=== PATIENT | female | born 1935 | race Caucasian/White ===

== ENCOUNTER → 2016-10-21 08:13 | Outpatient (CLI) | payer MEDICARE | LOC: D.MAMMO 08:13 | DX: Z12.31 Encounter for screening mammogram for malignant neoplasm of breast (principal) ==

== ENCOUNTER → 2017-10-28 05:16 | Outpatient (CLI) | payer MEDICARE | END | disposition home or self-care (01) | LOC: D.MAMMO 05:16 | DX: Z12.31 Encounter for screening mammogram for malignant neoplasm of breast (principal) ==

== ENCOUNTER → 2019-05-17 12:22 | Outpatient (CLI) | payer MEDICARE ==
--- NOTE | 2019-05-19 08:54 | EC ---
PATIENT:CHARITY SUH DATE OF SERVICE: 05/17/19 SEX: F MEDICAL RECORD: [id number] DATE OF : 39 LOCATION:D.CT AGE OF PATIENT: 83 ADMISSION DATE: 05/17/19 REFERRING PHYSICIAN: INTERPRETING PHYSICIAN: NANDO CONNOR MD ECHOCARDIOGRAM REPORT ECHO CHARGES 4 ECHO COMPLETE Date: 05/17/19 CLINICAL DIAGNOSIS: HEART MURMUR ECHOCARDIOGRAPHIC MEASUREMENTS (adult normal given) AC root (d.<3.7cm) 3.3 cm LV Septum d (<1.2 cm> 1.3 cm Valve Excursion 1.6 cm LV Septum (systole) 1.6 cm Left Atria (s.<4.0cm> 3.7 cm LVPW d(<1.2cm) 1.6 cm RV (d.<2.3cm) 3.7 cm LVPW (sytole) 1.9 cm LV diastole(<5.6CM) 4.1 cm MV E-F(>70mm/sec) cm LV systole 2.5 cm LVOT Diameter 1.6 cm MV exc.(>10mm) 1.1 cm Est.ejection fraction (50-75%) % DOPPLER: LVIT cm/sec A 91.0 cm/sec E 59.0 cm/sec LA cm/sec RVSP 28 mmHg LVOT 89 cm/sec AOP1/2T m/s Asc. Ao 120 cm/sec RVOT 57 cm/sec RA cm/sec PA 89 cm/sec AV Gradient Peak 5.72 mmHg AV Mean 3.15 mmHg AV Area 1.9 cm MV Gradient Peak 4.76 mmHg MV Mean 2.10 mmHg MV Area cm COMMENTS: Lease Purchase Truck Driver: 2 ASIM [employer] Terminal Computer Operator: 3 Dr. Colon TAPE# PACS Pericardial Effusion N DATE OF SERVICE: Adequate 2-D echo, Color-Flow and Spectral Doppler, and M-mode LVH is present. LV internal dimension is normal. Wall motion is normal. EF is greater than or equal to 55%. Aortic valve is tricuspid. No evidence of stenosis by Doppler interrogation. Left atrium is normal. Mitral valve shows no prolapse. Trace MR. Right-sided chambers are grossly normal. Trace TR. TRANSINT:[id number] Voice Confirmation ID: [id number] DOCUMENT ID: [id number] ECHOCARDIOGRAM REPORT [id number] CHARITY SUH,NANDO Field MD at 0854 CC: [id number] DICTATION DATE: 05/18/19 131 CROP RESEARCH SCIENTIST: 05/18/191912 DEP CLI 05/17/19 [facility] [address] [place] [address]
== END | disposition home or self-care (01) ==
LOC: D.CT 12:22 → D.HCCECHO 13:30
PROVIDERS: ATTEND Internal Medicine Interventional Cardiology
DX: I70.213 Atherosclerosis of native arteries of extremities with intermittent claudication, bilateral legs (principal); R60.0 Localized edema; R01.1 Cardiac murmur, unspecified

== ENCOUNTER 2019-06-07 11:29 | Outpatient (CLI) | payer MEDICARE ==
[~2019-06-07] VITALS: Ht 157.5 cm; Wt 54.5 kg
--- NOTE | ~2019-06-07 | HEMODYNAMI ---
PATIENT:CHARITY SUH MEDICAL RECORD: [id number] : 39 LOCATION:[facility] ADMISSION DATE: 06/07/19 Generatedon:06/07/201915:03 Patient name: CHARITY SUH Patient #: [id number] SSN: D OB: 1935 Date of study: 06/07/2019 Page: Of Hemodynamic Procedure Report Patient Data Patient Demographics Procedure consent was obtained First Name: CHARITY Gender: Female Last Name: ANGELI : 1935 [facility] Initial: J Age: 83 year(s) Patient #: [id number] Race: Unknown Additional ID: [id number] Contact details Address: [address] [place] [address] [address] State: [place] City: [place] Zip code: [address] Past Medical History Allergies Allergen Reaction Date Comments Reported Other allergy 06/07/2019 CORTISONE Admission Admission Data Admission Date: 06/07/2019 Admission Time: 11:29 Height (in.): 62 BSA: 1.54 (m2) Height (cm.): 157.48 BMI: 22.13 (kg/m2) Weight (lbs.): 121 Weight (kg.): 54.88 Lab Results Lab Result Date: 06/07/2019 Lab Result Time: 0:00 Biochemistry Name Units Result Min Max BUN mg/dl 23 --(----)-* 7 18 Creatinine mg/dl 0.6 --(*---)-- 0.6 1.3 eGFR ml/min 90 --(*---)-- 90 120 NONAFRICAN CBC Name Units Result Min Max Hematocrit % 41.6 -*(----)-- 42 54 Hemoglobin g/dl 14.7 --(-*--)-- 13.5 17.5 Procedure Procedure Types Cath Procedure Diagnostic Procedure Sedation Charges Moderate Sedation up to 45 minutes PCI Procedure Hemochron ACT Test Peripheral Cath Diagnostic Procedure Tank Farm Operator Peripheral Procedures AFRO (Diagnostic) Peripheral vascular Intervention Stent Stent-Fem/Popw/plasty Procedure Description Procedure Date Procedure Date: 06/07/2019 Procedure Start Time: 14:05 Procedure End Time: 15:01 Procedure Staff Name Function Homer Scott MD Performing Physician Татьяна Perez RN Nurse Carmelina Plummer RT Scrub Rosmery Perez RT Monitor Shannanmarsha Watts RT Monitor Procedure Data Cath Procedure Fluoroscopy Diagnostic fluoroscopy Total fluoroscopy Time: time: 11.7 min 11.7 min Diagnostic fluoroscopy Total fluoroscopy dose: 208 dose: 208 mGy mGy Contrast Material Contrast Material Type Amount (ml) Isovue 370 113 Entry Location Entry Primary Successful Side Size Upsize Upsize Entry Closure Succes sful Closure Location (Fr) 1 (Fr) 2 (Fr) Remarks Device Remarks Femoral Right 5 Fr 6 Fr Exoseal artery Long Estimated blood loss: 10 ml Diagnostic catheters Device Type Used For End Catheter Placement DIAGNOSTIC UF 5Fr Procedure catheter ([id number]) Procedure Complications No complications Procedure Medications Medication Administration Route Dosage Oxygen etCO2 Nasal cannula 2 l/min Lidocaine 2% added to field 20 Heparin Flush Bag added to field 2 bags (1000units/500ml NS) 0.9% NaCl I.V. 100 ml/hr Versed I.V. 2 mg Fentanyl I.V. 50 mcg Versed I.V. 1 mg Fentanyl I.V. 50 mcg Heparin Bolus I.V. 5000 units Versed I.V. 1 mg Fentanyl I.V. 100 mcg Versed I.V. 2 mg Fentanyl I.V. 100 mcg Heparin Bolus I.V. 2000 units Hemodynamics Rest BSA: 1.54 (m2) HGB: 14.7 (g/dl) O2 Consumption: Estimated: 136.35 (ml/min) O2 Co nsumption indexed: Estimated:88.54 (ml/min/m) Heart Rate: 67 (bpm) Snapshots Pre Cath Intra NCS Post Cath Vital Signs Time Heart Resp SPO2 etCO2 NIBP (mmHg) Rhythm Pain Sedation Rate (ipm) (%) (mmHg) Status Level (bpm) 13:50:06 73 18 97 0 170/94(123) NSR 0 (11) 10(A) , No pain 13:54:28 68 14 97 27.7 145/79(107) NSR 0 (11) 10(A) , No pain 13:58:44 68 18 96 0 134/74(117) NSR 0 (11) 10(A) , No pain 14:03:00 72 15 93 0 131/68(89) NSR 0 (11) 10(A) , No pain 14:07:16 72 19 100 24.7 138/66(111) NSR 0 (11) 10(A) , No pain 14:11:32 78 17 94 0 125/63(102) NSR 0 (11) 9(A) , No pain 14:15:44 78 17 97 0 127/66(97) NSR 0 (11) 9(A) , No pain 14:19:58 80 18 98 0 130/65(85) NSR 0 (11) 9(A) , No pain 14:24:14 79 19 96 0 126/64(106) NSR 0 (11) 9(A) , No pain 14:28:24 81 20 100 41.9 135/78(93) NSR 0 (11) 10(A) , No pain 14:32:40 78 17 100 12.7 128/69(91) NSR 0 (11) 10(A) , No pain 14:36:52 77 11 100 29.9 123/69(94) NSR 0 (11) 10(A) , No pain 14:41:02 78 17 100 0 132/69(90) NSR 0 (11) 10(A) , No pain 14:45:18 77 15 100 0 150/66(95) NSR 0 (11) 10(A) , No pain 14:49:38 77 16 98 0 123/61(82) NSR 0 (11) 10(A) , No pain 14:53:48 81 20 99 24.7 136/69(113) NSR 0 (11) 10(A) , No pain 14:58:00 82 14 99 44.2 138/81(105) NSR 0 (11) 10(A) , No pain 15:02:08 83 25 93 9.7 153/92(111) NSR 0 (11) 10(A) , No pain Medications Time Medication Route Dose Verified Delivered Reason Notes Effectiveness by by 13:50:31 Oxygen etCO2 2 Homer Vaz used for Nasal l/min St Tay Perez mold sander cannula 13:56:41 Lidocaine 2% added 20ml Homer Coronel for local to vial [facility] anesthetic field MD LUIS 13:56:48 Heparin Flush added 2 Homer Coronel used for Bag to bags [facility] procedure (1000units/500ml field MD LUIS NS) 13:57:00 0.9% NaCl I.V. 100 Homer Vaz Per physician ml/hr St Tay Perez RN, MD 14:02:47 Versed I.V. 2 mg Homer Buffie for sedation St Tay Perez RN, MD 14:02:53 Fentanyl I.V. 50 Homer Buffie for sedation mcg St Tay Perez RN, MD 14:07:45 Versed I.V. 1 mg Homer Buffie for sedation St Tay Perez RN, MD 14:07:49 Fentanyl I.V. 50 Homer Buffie for sedation [facility] Perez RN, MD 14:10:36 Heparin Bolus I.V. 5000 Homer Buffie for verif ied units St Tay Perez RN anticoagulation with dr MD pantoja 14:15:20 Versed I.V. 2 mg Homer Buffie for sedation St Tay Perez RN, MD 14:29:59 Versed I.V. 1 mg Homer Buffie for sedation St Tay Perez RN, MD 14:30:02 Fentanyl I.V. 100 Homer Buffie for sedation peter Correa RN, MD 14:44:22 Fentanyl I.V. 100 Homer Buffie for sedation [facility] Tay Perez RN, MD 14:46:32 Heparin Bolus I.V. 2000 Homer Buffie for verif ied units St Tay Perez RN anticoagulation with dr MD pantoja Procedure Log Time Note 18:40:47 Sheath removed intact; hemostasis achieved with Exoseal to the Right Femoral artery. 13:29:47 Informed consent obtained and on chart 13:29:54 Procedure Status Elective Heart Cath (OP). 13:29:55 Time tracking: Regular hours (M-F 7:00 - 5:00) 13:29:58 Plan of Care:Hemodynamics will remain stable., Cardiac rhythm will remain stable., Comfort level will be maintained., Respiratory function will remain adequate., Patient/ family verbilizes understanding of procedure., Procedure tolerated without complication., Recovers from procedure without complications.. 13:30:12 H&P Date Dictated: 05/31/2019 Within 30 days and on chart., H&P Addendum completed by physician on day of procedure. (MUST COMPLETE FOR ALL OUTPATIENTS). 13:30:53 Patient allergic to Other allergyCORTISONE 13:31:52 Patient Weight : 121 lbs 13:31:56 Patient Height : 62 inches 13:32:37 Татьяна Perez RN sent for patient. Start room use. 13:37:00 Lab Result : BUN 23 mg/dl 13:37:00 Lab Result : eGFR NONAFRICAN 90 ml/min 13:37:00 Lab Result : Creatinine 0.6 mg/dl 13:37:00 Lab Result : Hemoglobin 14.7 g/dl 13:37:00 Lab Result : Hematocrit 41.6 % 13:43:10 Patient received from Pre/Post Procedure Room to CCL 1 Alert and oriented. Tansferred to table in Supine position. 13:43:12 Warm blankets applied, and andreea hugger turned on for patient comfort. 13:43:13 Correct patient and procedure confirmed by team. 13:43:15 ECG and BP/O2 sat monitors applied to patient. 13:43:19 Pre-procedure instructions explained to patient. 13:43:20 Pre-op teaching completed and patient verbalized understanding. 13:43:22 Family in waiting room. 13:43:24 Patient NPO since Midnight. 13:43:38 Stress Test: no; N/A ? 13:47:50 Is the patient allergic to Iodine/contrast media? No. 13:47:53 Is patient on blood thinner?No 13:47:55 Patient diabetic? No. 13:47:57 If diabetic: On Metformin? N/A 13:48:00 Patient not . Patient is over age 55. 13:48:01 ----Pre-sedation anethsthesia assessment.---- 13:48:05 Previous problem with sedation/anesthesia? No ? 13:48:06 Snore? No 13:48:07 Sleep apnea? No 13:48:09 Deviated septum? No 13:48:10 Opens mouth fully? Yes 13:48:11 Sticks out tongue? Yes 13:48:13 Airway obstruction? No ? 13:48:15 Dentures? No ? 13:48:19 Pre procedure: right dorsailis pedis pulse 1+ Palpable, but thready & weak; easily obliterated 13:48:28 Patient pain scale 1/10 left leg pain. 13:48:41 Bilateral groins area was prepped with chlora-prep and draped in sterile fashion 13:48:42 Alarms reviewed by R. N. 13:48:43 Sharps counted by scrub and verified by R.N. 13:48:51 Lab results completed and on chart. 13:48:58 Vital chart was started 13:49:01 Full Disclosure recording started 13:49:29 IV patent on arrival in left antecubital with 0.9% NaCl at O. 13:50:31 Oxygen 2 l/min etCO2 Nasal cannula was administered by Татьяна Perez RN; used for procedure; Verbal order read back and verified. 13:56:41 Lidocaine 2% 20ml vial added to field was administered by Homer Scott MD; for local anesthetic; Verbal order read back and verified. 13:56:48 Heparin Flush Bag (1000units/500ml NS) 2 bags added to field was administered by Homer Scott MD; used for procedure; Verbal order read back and verified. 13:57:00 0.9% NaCl 100 ml/hr I.V. was administered by Татьяна Perez RN; Per physician; Verbal order read back and verified. 13:57:09 Baseline sample Acquired. 13:57:13 Rhythm: sinus rhythm 13:59:04 Use device set Femoral Dx 13:59:06 ACIST Syringe (46676) opened to sterile field. 13:59:07 Bag Decanter (2002S) opened to sterile field. 13:59:08 Medline Cath Pack ([id number]) opened to sterile field. 13:59:10 ACIST Hand Control (67036) opened to sterile field. 13:59:10 ACIST Manifold (07816) opened to sterile field. 13:59:17 SHEATH 5FR Peerless ([id number]) opened to sterile field. 13:59:18 EMERALD Guide Wire (614-462) opened to sterile field. 14:02:07 --------ALL STOP TIME OUT------ 14:02:08 Final Timeout: patient, procedure, and site verified with staff and physician. All members of the team are in agreement. 14:02:10 Bilateral groins site verified by team. 14:02:14 Fire Safety Assessment: A--An alcohol-based skin anteseptic being used preoperatively., C--Open oxygen or nitrous oxide is being used., D--An ESU, laser, or fiber-optic light is being used. 14:02:17 Physical assessment completed. ASA score P 2 - A patient with mild systemic disease as per Homer Scott MD. 14:02:24 1) 90+ Normal kidney functon but urine findings or structural abnormalities or genetic trait point to kidney disease. 14:02:28 Maximum allowable contrast dose (3.7 X eGFR X 0.75)250 ml. 14:02:32 Sedation plan: IV Moderate Sedation Medication:Versed, Fentanyl 14:02:47 Versed 2 mg I.V. was administered by Татьяна Perez RN; for sedation; Verbal order read back and verified. 14:02:53 Fentanyl 50 mcg I.V. was administered by Татьяна Perez RN; for sedation; Verbal order read back and verified. 14:04:34 Procedure started. 14:05:14 Local anesthetic to right femoral artery with Lidocaine 2% by Homer Scott MD.INITIAL ACCESS ONLY 14:06:29 A 5 Fr sheath was inserted into the Right Femoral artery 14:06:45 A DIAGNOSTIC UF 5Fr catheter ([id number]) was advanced over the wire and used for Procedure. 14:07:45 Versed 1 mg I.V. was administered by Татьяна Perez RN; for sedation; Verbal order read back and verified. 14:07:47 Abdominal angiogram w/ runoff was performed. 14:07:49 Fentanyl 50 mcg I.V. was administered by Татьяна Perez RN; for sedation; Verbal order read back and verified. 14:09:56 Proceeding to intervention. 14:10:36 Heparin Bolus 5000 units I.V. was administered by Татьяна Perez RN; for anticoagulation; verified with dr pantoja Verbal order read back and verified. 14:11:36 Catheter exchanged over wire. 14:11:43 SHEATH 6FR Destination (RSR01) opened to sterile field. 14:12:00 Sheath upsized to a 6 Fr Long. 14:12:28 TORQUE DEVICE PLASTIC .038 ( TD01) opened to sterile field. 14:15:20 Versed 2 mg I.V. was administered by Татьяна Perez RN; for sedation; Verbal order read back and verified. 14:16:58 6 FR DESTINATION ADVANCED. 14:19:25 GLIDE WIRE Super Stiff Angled 260cm ([id number]) opened to sterile field. 14:19:36 WIRE ADVANCED. 14:24:17 INFLATOR Merit Acostak (EQ5427) opened to sterile field. 14:25:57 Wire advanced across lesion. 14:28:09 Inflate balloon Inflation number: 1 A POWERFLEX PRO 5.0 X 100 X 135 balloon ([id number]) was prepped and advanced across the Mid Superficial Femoral, Left , then inflated to 10 BRYANT for 0:00 (min:sec) . 14:29:01 Inflation number: 2 The POWERFLEX PRO 5.0 X 100 X 135 balloon ([id number]) was reinflated across the Mid Superficial Femoral, Left , to 10 BRYANT for 0:00 (min:sec) . 14:29:45 Inflation number: 3 The POWERFLEX PRO 5.0 X 100 X 135 balloon ([id number]) was reinflated across the Mid Superficial Femoral, Left , to 10 BRYANT for 0:00 (min:sec) . 14:29:59 Versed 1 mg I.V. was administered by Татьяна Perez RN; for sedation; Verbal order read back and verified. 14:30:02 Fentanyl 100 mcg I.V. was administered by Татьяна Perez RN; for sedation; Verbal order read back and verified. 14:30:44 Balloon removed over the wire. 14:39:49 SMART Flex 5 X 120 X 120 stent ([id number]) was deployed across Mid Superficial Femoral, Left . 14:41:00 Stent catheter was removed intact over wire. 14:43:26 SMART Flex 5 X 100 X 120 stent ([id number]) was deployed across Mid Superficial Femoral, Left . 14:44:22 Fentanyl 100 mcg I.V. was administered by Татьяна Perez RN; for sedation; Verbal order read back and verified. 14:44:38 Stent catheter was removed intact over wire. 14:45:52 Balloon re-inserted over wire. 14:46:20 Inflation number: 4 The POWERFLEX PRO 5.0 X 100 X 135 balloon ([id number]) was reinflated across the Mid Superficial Femoral, Left , to 12 BRYANT for 0:00 (min:sec) . 14:46:32 Heparin Bolus 2000 units I.V. was administered by Татьяна Perez RN; for anticoagulation; verified with dr pantoja Verbal order read back and verified. 14:47:03 Inflation number: 5 The POWERFLEX PRO 5.0 X 100 X 135 balloon ([id number]) was reinflated across the Mid Superficial Femoral, Left , to 12 BRYANT for 0:00 (min:sec) . 14:47:35 Inflation number: 6 The POWERFLEX PRO 5.0 X 100 X 135 balloon ([id number]) was reinflated across the Mid Superficial Femoral, Left , to 12 BRYANT for 0:00 (min:sec) . 14:48:17 Balloon removed over the wire. 14:48:38 Wire removed. 14:48:38 Guide catheter removed. 14:49:02 EXOSEAL 6Fr (EX600) opened to sterile field. 14:49:45 SHEATH 6FR Peerless ([id number]) opened to sterile field. 14:51:04 Procedure ended.(Physican Out) 14:51:16 Fluoroscopy time 11.70 minutes. 14:51:20 Fluoroscopy dose: 208 mGy 14:51:20 Flurop Dose total: 208 14:51:26 Dose Area Product 37331 mGy/cm. 14:51:31 Contrast amount:Isovue 370 113ml. 14:51:34 Maximum allowable dose exceeded? No. 14:51:35 Sharps counted by scrub and verified by R.N. 14:51:42 Post-op/insertion site Right Femoral artery dressed using a 4 x 4 and Tegaderm. 14:51:50 Post right femoral artery:stable, soft, clean and dry 14:51:51 Post Procedure Pulses reassessed and unchanged 14:51:56 Post procedure: right dorsailis pedis pulse 1+ Palpable, but thready & weak; easily obliterated. 14:52:00 Post-procedure physical assessment completed. ASA score P 2 - A patient with mild systemic disease as per Homer Scott MD. 14:52:03 Post procedure rhythm: unchanged. 14:52:07 Estimated blood loss: 10 ml 14:52:09 Post procedure instruction explained to patient.Patient verbalizes understanding. 14:52:10 Patient needs reinforcement of post procedure teaching. 14:55:12 Procedure type changed to Cath procedure, Diagnostic procedure, Sedation Charges, Moderate Sedation up to 45 minutes, PCI procedure, Hemochron ACT Test, Peripheral Cath Diagnostic Procedure, Tank Farm Operator Peripheral Procedures, AFRO (Diagnostic), Peripheral vascular Intervention, Stent, Stent-Fem/Popw/plasty 14:55:19 ACT drawn and resulted at 371 seconds. (normal therapeutic range 180-240 seconds). 14:55:31 Procedure Complication : No complications 14:57:57 Procedure and supply charges have been captured, reviewed, submitted and are correct. 14:58:02 Operative report dictated upon procedure completion. 14:58:03 Operative report dictated upon procedure completion. 14:58:04 See physician's report for complete and final results. 14:58:06 Report given to Pre/Post Procedure Room. 14:58:10 Patient transfered to Pre/Post Procedure Room with Stretcher. 14:58:34 AFRO Findings: PVD: DIRECTOR STUDENT UNION performed (see procedure notes) 15:01:53 Vital chart was stopped 15::58 Procedure ended. 15::58 Full Disclosure recording stopped 15:02:39 ACC-PCI Only Patient was given prescriptions, or instructed by Homer Scott MD to start/continue the following medications upon discharge: Plavix 15:02:41 End room use (Document Last) 15:03:11 End room use (Document Last) 15:03:27 End room use (Document Last) Intervention Summary Intervention Notes Time ActionType Lesion and Equipment Action# Pressure Duration Attributes Used 14:28:09 Inflate Mid POWERFLEX 1 10 00:00 balloon Superficial PRO 5.0 X Femoral, 100 X 135 Left balloon ([id number]) 14:29:01 Reinflate Mid POWERFLEX 2 10 00:00 balloon Superficial PRO 5.0 X Femoral, 100 X 135 Left balloon ([id number]) 14:29:45 Reinflate Mid POWERFLEX 3 10 00:00 balloon Superficial PRO 5.0 X Femoral, 100 X 135 Left balloon ([id number]) 14:39:49 Deploy self Mid SMART Flex 1 expanding Superficial 5 X 120 X stent Femoral, 120 stent Left ([id number]) 14:43:26 Deploy self Mid SMART Flex 1 expanding Superficial 5 X 100 X stent Femoral, 120 stent Left ([id number]) 14:46:20 Reinflate Mid POWERFLEX 4 12 00:00 balloon Superficial PRO 5.0 X Femoral, 100 X 135 Left balloon ([id number]) 14:47:03 Reinflate Mid POWERFLEX 5 12 00:00 balloon Superficial PRO 5.0 X Femoral, 100 X 135 Left balloon ([id number]) 14:47:35 Reinflate Mid POWERFLEX 6 12 00:00 balloon Superficial PRO 5.0 X Femoral, 100 X 135 Left balloon ([id number]) Device Usage Item Name Manufacture Quantity Catalog Hospital Part Current Minimal L ot# / Number Charge Number Stock Stock Serial# Code ACIST Acist 1 01750 817685 795688 831330 20 Syringe Medical (13474) Systems Inc Bag Microtek 1 2001S 219124 23726 170854 5 Decanter Medical Inc. () Medline Medline 1 [id number] 969171 88352 748561 5 Cath Pack ([id number]) ACIST Hand Acist 1 42447 094403 156090 975885 5 Control Medical (02811) Systems Inc ACIST Acist 1 98803 680558 640100 052641 5 Manifold Medical (32277) Systems Inc SHEATH 5FR Terumo 1 [id number] 609068 129637 574237 5 Peerless (UAZ418) EMERALD Cardinal 1 502-455 992242 305968 745816 5 Guide Wire Health (502-455) DIAGNOSTIC Cardinal 1 [id number] 133499 517600 999202 10 UF 5Fr Health catheter ([id number]) SHEATH 6FR Terumo 1 RSR01 727895 97151 270365 5 Destination (RSR01) TORQUE [place] 1 TD01 000618 290959 730383 5 DEVICE Scientific PLASTIC .038 ( TD01) GLIDE WIRE Terumo 1 YC9595 525989 919700 192374 5 Super Stiff Angled 260cm (HX4170) INFLATOR Merit 1 YL7868 166500 646806 417458 15 [facility] Medical BasixCompak (KE4877) POWERFLEX Cardinal 1 [id number] 493693 311341 453084 5 PRO 5.0 X Health 100 X 135 balloon ([id number]) SMART Flex Cardinal 1 [id number] 465892 042077 165218 0 5 X 120 X Health 120 stent ([id number]) SMART Flex Cardinal 1 [id number] 477896 776744 564756 0 5 X 100 X Health 120 stent ([id number]) EXOSEAL 6Fr Cardinal 1 EX600 873696 513962 573525 10 (EX600) Health SHEATH 6FR Terumo 1 IFR984 781977 925747 702892 40 Peerless ([id number]) Signature Audit [place] Stage Time Signature Unsigned Intra-Procedure 06/07/2019 Rosmery Perez 3:03:11 PM RT(R) Intra-Procedure 06/07/2019 Татьяна Perez RN 3:03:27 PM Intra-Procedure 06/07/2019 Homer Gastelum 3:03:46 PM Tay LUIS [facility] [address] [place] [address]
[2019-06-07] MEDS ORDERED: XANAX0.25 MG PO (12:23)
[2019-06-07] MEDS ORDERED: SOMA350 MG PO (12:24)
[2019-06-07] MEDS ORDERED: CONJUGATED ESTROGENS 0.625 MG VG (12:26)
[2019-06-07] MEDS ORDERED: CYCLOBENZAPRINE10 MG PO (12:27)
[2019-06-07] MEDS ORDERED: HYDROCHLOROTH12.5 M1 PO (12:27)
[2019-06-07] MEDS ORDERED: COZAAR100 MG PO (12:27)
[2019-06-07] MEDS ORDERED: MYRBETRIQ50 MG PO (12:28)
[2019-06-07] MEDS ORDERED: TOPROL XL100 MG PO (12:28)
[2019-06-07] MEDS ORDERED: NEXIUM40 MG PO (12:30)
[2019-06-07] MEDS ORDERED: KLOR-CON 1010 MEQ PO (12:30)
[2019-06-07] MEDS ORDERED: OXYCODONE HCL10 MG PO (12:30)
[2019-06-07] MEDS ORDERED: AMBIEN10 MG PO (12:31)
[2019-06-07] MEDS ORDERED: REQUIP0.25 MG PO (12:31)
[2019-06-07] MEDS ORDERED: PRAVACHOL20 MG PO (12:31)
[2019-06-07] MEDS ORDERED: TRAZODONE HCL150 MG PO (12:32)
[2019-06-07 12:53] LABS: BASOPHILS 0.3 % (0-2); EOSINOPHILS 1.4 % (0-7); HEMATOCRIT 41.6 % (36.0-48.0); HEMOGLOBIN 14.7 g/dL (12-16); IMMATURE GRANULOCYTES 0.5 % (0-5); LYMPHOCYTES 21.8 % (15-50); MCH 33.6 pg (26.0-34.0); MCHC 35.3 g/dL (31.0-37.0); MCV 95.2 fL (80.0-100.0); MEAN PLATELET VOLUME 9.3 fL (7.4-10.4); MONOCYTES 9.9 % (2-11); NEUTROPHILS 66.1 % (40-80); PLATELET COUNT 209 10x3/uL (130-400); RBC 4.37 10x6/uL (4.00-5.40); WBC 6.6 10x3/uL (4.8-10.8)
[2019-06-07 12:57] VITALS: BP 139/79; Ht 157.5 cm; Wt 54.5 kg
[2019-06-07 13:04] LABS: CALC OSMOLALITY 288 mosm/kg (275-300); CALCIUM 8.8 mg/dL (8.5-10.1); CARBON DIOXIDE 31.7 mmol/L (21.0-32.0); CHLORIDE - SERUM 103 mmol/L (98-107); CREATININE - SERUM 0.6 mg/dL (0.6-1.3); GLUCOSE 93 mg/dL (74-106); POTASSIUM - SERUM 3.1 mmol/L (3.5-5.1); SODIUM 143 mmol/L (136-145); UREA NITROGEN 23 mg/dL (7-18); eGFR NON AFRICAN AMERICAN > 90 mL/min (90-120)
--- NOTE | 2019-06-07 15:16 | NUR ---
PT ARRIVED BY STRETCHER. PLACED ON MONITORS. ASSESSMENT COMPLETED. VSS. CALL LIGHT WITHIN REACH. NO FAMILY AT BEDSIDE AT THIS TIME.
[2019-06-07] MEDS ORDERED: BAYER CHEWABLE81 MG PO (15:32)
[2019-06-07] MEDS ORDERED: PLAVIX75 MG PO (15:32)
--- NOTE | 2019-06-07 15:35 | NUR ---
PT SET UP WITH DRINK AND SANDWICH. ABLE TO FEED SELF. DENIES NAUSEA. AWAKE AND ALERT AT THIS TIME. PT IN [place] POSITION BUT BED IS IN REVERSE [place] POSITION AT THIS TIME. VSS. CALL LIGHT WITHIN REACH. PT WATCHING TELEVISION.
--- NOTE | 2019-06-07 16:00 | NUR ---
PT RESTING COMFORTABLY. VSS. RIGHT GROIN DRESSING C/D/I. NO S/S OF HEMATOMA NOTED. CALL LIGHT WITHIN REACH. DENIES NAUSEA AT THIS TIME.
--- NOTE | 2019-06-07 16:30 | NUR ---
RIGHT GROIN DRESSING C/D/I. NO S/S OF HEMATOMA NOTED. CALL LIGHT WITHIN REACH. VSS.
--- NOTE | 2019-06-07 17:00 | NUR ---
RIGHT GROIN DRESSING C/D/I. NO S/S OF HEMATOMA NOTED. CALL LIGHT WITHIN REACH. VSS AT THIS TIME. PT DENIES NAUSEA/PAIN.
--- NOTE | 2019-06-07 17:30 | NUR ---
RIGHT GROIN DRESSING C/D/I. NO S/S OF HEMATOMA NOTED. PT ON BEDPAN. VOIDED APPROX 150cc OF YELLOW URINE. PT REFUSED TO LAY FLAT. SHE STATES "I CAN'T PEE LAYING FLAT!!" AND PROCEEDED TO PROP HERSELF UP ON HER ELBOWS TO VOID. I INSTRUCTED HER ON THE NEED TO CONTINUE TO LAY FLAT, BUT SHE REFUSED. SOURAV-CARE GIVEN AND RIGHT GROIN CHECKED AFTER PT HAD SAT UP SLIGHTLY. DRESSING WAS C/D/I. NO S/S OF HEMATOMA NOTED. SHE STATES THAT HER BACK HAS STARTED HURTING AND REPORTS ITS HER CHRONIC PAIN AND GIVES IT A 8/10 ON PAIN SCALE. WILL GIVE PAIN MEDICATION ORDERED AND CONTINUE TO MONITOR.
--- NOTE | 2019-06-07 18:00 | NUR ---
RIGHT GROIN DRESSING C/D/I. NO S/S OF HEMATOMA NOTED. RIGHT PEDAL PULSES WITH DOPPLER. BILATERAL LOWER EXT WARM TO TOUCH. PINK IN COLOR WITH CAP REFILL <3 SECS. PT'S HEAD OF BED INC TO 30 DEGREES. TOLERATED WELL. REPORTS HER BACK PAIN HAS IMPROVED SLIGHTLY AND RATES IT A 6/10 AT THIS TIME. CALL LIGHT WITHIN REACH. VSS. NO NEEDS AT THIS TIME.
--- NOTE | 2019-06-07 18:30 | NUR ---
RIGHT GROIN DRESSING C/D/I. NO S/S OF HEMATOMA NOTED. PIV D/C'D WITH CATH TIP INTACT. TOLERATED WELL. PT UP AND DRESSED WITH MINIMAL ASSISTANCE.
--- NOTE | 2019-06-07 18:45 | NUR ---
DISCUSSED DISCHARGE INSTRUCTIONS WITH PT. SHE VOICED UNDERSTANDING. PT AMBULATING IN ROOM WITH WALKER. STEADY GAIT NOTED. RIGHT GROIN DRESSING C/D/I. NO S/S OF HEMATOMA NOTED.
--- NOTE | 2019-06-07 19:00 | NUR ---
PT'S RIDE ARRIVED. PT TAKEN OUT TO VEHICLE BY WHEELCHAIR. NO S/S OF DISTRESS NOTED. ALL BELONGINGS AND PAPERWORK IN HAND. THIS INCLUDES PHONE, GLASSES, PURSE, CLOTHING, AND DISCHARGE PAPEROWRK.
--- NOTE | 2019-06-09 09:09 | OP ---
PATIENT NAME: CHARITY SUH MEDICAL RECORD: [id number] LOCATION:D.[facility] ADMISSION DATE: SURGEON: NANDO CONNOR MD DATE OF OPERATION: 06/07/2019 PROCEDURE: AFRO. PTCA stent to the left SFA. CATHETERS USED: A 5-St Lucian sheath, VALENTINA catheter. The procedure was well tolerated. We proceeded immediately to HOSPICE MUSIC THERAPY stenting of the left SFA. FINDINGS: The VALENTINA catheter was placed at the level of the renal arteries and AFRO was performed. This showed a markedly tortuous aorta, but no evidence of dissection, no evidence of aneurysm. Nonselective injection of the renal artery showed no significant stenosis. Left iliac system is very tortuous. The superficial system common and deep free of disease. The left superficial femoral shows multiple areas beginning at the mid portion down right before the trifurcation greater than 90%. Right iliac system is again a very tortuous without significant stenosis. The right femoral system including deep and common are free of disease. Right superficial again has several areas of 80% stenosis right before the trifurcation. IMPRESSION: Left is the most symptomatic, plan of intervention momentarily. Intervention of the right at later date. DESCRIPTION OF PROCEDURE: 1. After a long 6-St Lucian sheath was placed around the horn into the iliac system. The Glidewire placed down through all the lesions down this portion of vessel. Pre-deployment balloon used was a 5-0, 100 balloon. 2. SMART stents were placed in the following fashion distally, a 5 x 120 SMART stent was placed. 3. A 100 x 5 SMART stent was placed. These were then postdilated with the previous balloon up to 14 atmospheres. This shows excellent resolution of multiple 90% stenosis. No significant residual. Good three-vessel runoff is noted with good pulses distally. Sheath closed with ExoSeal device. PLAN: Intervention of the right at a later date. TRANSINT:[id number] Voice Confirmation ID: [id number] DOCUMENT ID: [id number] NANDO CONNOR MD at 0909 CC: [id number] DICTATION DATE: 06/07/19 1504 CEMETERY LABORER: 06/07/19 1816 DEP CLI 06/07/19 [facility] [address] [place] [address]
== END 2019-06-07 19:00 | disposition home or self-care (01) ==
LOC: D.CATH 11:29
PROVIDERS: ATTEND Internal Medicine Interventional Cardiology
DX: I73.9 Peripheral vascular disease, unspecified (principal); I10 Essential (primary) hypertension; E78.5 Hyperlipidemia, unspecified

== ENCOUNTER → 2019-06-18 08:32 | Outpatient (CLI) | payer MEDICARE ==
[2019-06-07 12:57] VITALS: BMI 22.0
[~2019-06-18 08:32] MED LIST: AMBIEN10 MG PO; BAYER CHEWABLE81 MG PO; CONJUGATED ESTROGENS 0.625 MG VG; COZAAR100 MG PO; CYCLOBENZAPRINE10 MG PO; HYDROCHLOROTH12.5 M1 PO; KLOR-CON 1010 MEQ PO; MYRBETRIQ50 MG PO; NEXIUM40 MG PO; OXYCODONE HCL10 MG PO; PLAVIX75 MG PO; PRAVACHOL20 MG PO; REQUIP0.25 MG PO; SOMA350 MG PO; TOPROL XL100 MG PO; TRAZODONE HCL150 MG PO; XANAX0.25 MG PO
== END | disposition home or self-care (01) ==
LOC: D.US 08:32
PROVIDERS: ATTEND Nurse Practitioner Adult Health
DX: I72.4 Aneurysm of artery of lower extremity (principal)